=== PATIENT | male | born 1995 | race American Indian/Alaskan Native ===

== ENCOUNTER 2017-08-16 08:37 | Emergency (ER) | payer OTHER ==
[2017-08-16 08:44] VITALS: BP 112/77
[2017-08-16] MEDS ORDERED: DUONEB *Not for PRN Use IH ONE (08:46)
[2017-08-16] MEDS ORDERED: DECADRON IM ONE (08:52)
--- NOTE | 2017-08-16 09:32 | XRay Report ---
ROUTINE CHEST, TWO VIEWS: HISTORY: Cough. The trachea, heart, mediastinal contour, lung marquez and bony thorax are unremarkable. IMPRESSION: Unremarkable chest x-ray.
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
[2017-08-16 10:19] LABS: Bilirubin,Urine NEG (Negative); Blood,Urine NEG (Negative); Color,Urine Yellow (Yellow); Protein,Urine <15 mg/dL mg/dL (Negative); Urobilinogen,Urine < 2.0 mg/dL (<2.0); WBC,Urine < 1.0 /HPF (0.0-6.0)
[2017-08-16 10:22] LABS: Basophils % (Auto) 0.4 % (0.0-1.8); Eosinophils # (Auto) 0.3 K/mm3 (0.0-0.4); Eosinophils % (Auto) 2.6 % (0.0-4.3); Hematocrit 46.3 % (35.5-45.6); Hemoglobin 15.7 gm/dl (11.8-15.2); Lymphocytes # (Auto) 0.8 K/mm3 (1.2-5.4); Mean Corpuscular HGB Conc 34 % (32-34); Mean Corpuscular Hemoglobin 32 pg (28-32); Mean Corpuscular Volume 94 fl (84-94); Monocytes # (Auto) 0.4 K/mm3 (0.0-0.8); Monocytes % (Auto) 3.3 % (0.0-7.3); Platelet Count 168 K/mm3 (140-440); Red Blood Count 4.95 M/mm3 (3.65-5.03)
[2017-08-16 10:41] LABS: BUN/Creatinine Ratio 8; Blood Urea Nitrogen 6 mg/dL (9-20); Calcium 8.9 mg/dL (8.4-10.2); Hemolysis Index 4
[2017-08-16 11:01] LABS: ABG Base Excess -1.3 mmol/L (-2.0-3.0); ABG HCO3 23.1 mmol/L (20.0-26.0); ABG Methemoglobin 0.5 % (0.0-1.5); ABG Oxygen Saturation 96.1 % (95.0-99.0); ABG PCO2 38.1 mm Hg; ABG PH 7.401 pH Units (7.350-7.450); ABG PO2 75.4 mm Hg (80.0-90.0)
== END 2017-08-16 11:38 | disposition home or self-care (01) ==
LOC: ED 08:37
DX: J45.21 Mild intermittent asthma with (acute) exacerbation (principal); F17.200 Nicotine dependence, unspecified, uncomplicated; F12.10 Cannabis abuse, uncomplicated; Z91.013 Allergy to seafood
CPT/HCPCS: 36415; 71046; 80048; 81001; 82375; 82565; 82803; 85025; 94640; 96372; 99284; J1100